=== PATIENT | male | born 1975 | race Caucasian/White ===

== ENCOUNTER 2020-06-05 23:13 | Emergency (ER) | payer OTHER ==
[2020-06-05] MEDS ORDERED: Ketorolac 60 MG/2 ML SDV IM ONE (23:22)
[2020-06-05] MEDS ORDERED: Lidocaine 2% Viscous Solution 15 ML Cup TOP STA (23:25)
[2020-06-05] MEDS ORDERED: Diphtheria,Pertussis(Acell),Tetanus Vaccine 0.5 ML Syringe IM ONE (23:27)
[2020-06-05] MEDS ORDERED: Bacitracin Oint 1 GM U/D Packet TOP ONE (23:27)
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
[2020-06-05] MEDS ORDERED: Silver Sulfadiazine 1% Crm 50 GM Tube TOP ONE (23:37)
== END 2020-06-06 01:05 | disposition home or self-care (01) ==
LOC: JP.ED 23:13
DX: T22.211A Burn of second degree of right forearm, initial encounter (principal); T21.24XA Burn of second degree of lower back, initial encounter; T23.251A Burn of second degree of right palm, initial encounter; S50.812A Abrasion of left forearm, initial encounter; S10.91XA Abrasion of unspecified part of neck, initial encounter; F10.129 Alcohol abuse with intoxication, unspecified; Z23 Encounter for immunization; X08.8XXA Exposure to other specified smoke, fire and flames, initial encounter
CPT/HCPCS: 16020; 90471; 90715; 96372; 99283; A9270-GY; J1885